=== PATIENT | female | born 1990 | race Caucasian/White ===

== ENCOUNTER 2020-10-20 13:15 | Outpatient (REF) | payer MEDICAID, SELFPAY | END 2020-10-20 13:16 | disposition home or self-care (01) | LOC: HO.LAB 13:15 | PROVIDERS: Visit Provider Internal Medicine | DX: Z20.822 Contact with and (suspected) exposure to COVID-19 (principal) | CPT/HCPCS: 36415; C9803; U0003 ==

== ENCOUNTER 2020-11-11 12:14 | Outpatient (REF) | payer MEDICAID, SELFPAY | END 2020-11-11 12:15 | disposition home or self-care (01) | LOC: HO.LAB 12:14 | PROVIDERS: Visit Provider Internal Medicine | DX: Z20.822 Contact with and (suspected) exposure to COVID-19 (principal) | CPT/HCPCS: 36415; C9803; U0003; U0005 ==